=== PATIENT | male | born 1990 | race Caucasian/White ===

== ENCOUNTER 2017-07-04 23:43 | Inpatient (IN) | payer OTHER ==
[~2017-07-04] VITALS: Ht 188 cm; Wt 85.8 kg
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
[2017-07-05 00:13] LABS: BASO % 0 % (0-3); EOS % 0 % (0-3); HEMATOCRIT 48.4 % (39.0-53.0); HEMOGLOBIN 16.7 g/dL (13.0-17.5); LYMPH % 23 % (24-48); MEAN CORPUSCULAR HEMOGLOBIN 30 pg (25-35); MEAN CORPUSCULAR HGB CONC 35 g/dL (31-37); MEAN CORPUSCULAR VOLUME 87 fL (79-100); MONO % 9 % (0-9); NEUT % 68 % (31-73); PLATELET COUNT 221 x10^3/uL (140-400); RED BLOOD COUNT 5.58 x10^6/uL (4.30-5.70); RED CELL DISTRIBUTION WIDTH 12.8 % (11.5-14.5)
[2017-07-05 00:22] LABS: INR 1.2 (0.8-1.1); PROTHROMBIN TIME PATIENT 14.5 SEC (11.7-14.0)
[2017-07-05] MEDS ORDERED: IV NORMAL SALINE 1000ML BAG 1,000 ML IV ONE (00:30)
[2017-07-05 00:48] LABS: CREATININE 1.2 mg/dL (0.7-1.3); GFR 72.6; POTASSIUM 4.5 mmol/L (3.5-5.1)
[2017-07-05 00:54] LABS: ALBUMIN 5.3 g/dL (3.4-5.0); DIRECT BILIRUBIN 0.3 mg/dL (0.0-0.2); TOTAL BILIRUBIN 2.5 mg/dL (0.2-1.0)
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
[2017-07-05 01:54] LABS: BARBITURATES NEG (NEG); BENZODIAZEPINES NEG (NEG); CANNABINOIDS NEG (NEG); COCAINE NEG (NEG); METHADONE NEG (NEG); OPIATES NEG (NEG); PHENCYCLIDINE NEG (NEG)
[2017-07-05] MEDS ORDERED: ONDANSETRON PF 4 MG/2 ML VIAL. IV PRN ×2 (02:15→08:30)
[2017-07-05 02:38] LABS: BILIRUBIN,URINE NEGATIVE (NEG); GLUCOSE,URINE NEGATIVE (NEG); NITRITE,URINE NEGATIVE (NEG); PROTEIN,URINE NEGATIVE (NEG-TRACE); UROBILINOGEN,URINE 0.2 mg/dL (0.2 mg/dL)
[2017-07-05 02:39] LABS: BACTERIA,URINE FEW /HPF (0-FEW); SQUAMOUS EPITHELIAL CELL,UR OCC /LPF
[2017-07-05 04:02] VITALS: BP 125/82
[2017-07-05] MEDS: MORPHINE SULFATE 2 MG/ML DISP.SYRIN. IV PRN ×2 (04:20→15:53)
[2017-07-05] MEDS ORDERED: PREN1TAB58 PO (04:37)
[2017-07-05 07:00] VITALS: BP 119/70
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
[2017-07-05] MEDS ORDERED: ACETAMINOPHEN 325 MG TABLET. PO PRN (08:30)
[2017-07-05] MEDS: PRENATAL MULTIVITAMIN TABLET. PO SCH (09:10)
[2017-07-05] MEDS: IBUPROFEN 600 MG TABLET. PO PRN (09:30)
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
[2017-07-05 11:38] VITALS: BP 116/66
[2017-07-05] MEDS ORDERED: IOHEXOL 240 MG/ML 50ML VIAL. PO ONE (11:45)
[2017-07-05] MEDS ORDERED: CONTRAST GIVEN MC PRN (11:45)
[2017-07-05] MEDS ORDERED: IOHEXOL 300 MG/ML 100ML VIAL. IV ONE (11:45)
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
--- NOTE | 2017-07-05 12:51 | EKG ---
[facility] [address] [place] [address] Test Date: 2017-07-05 Test Time: 00:18:47 Pat Name: NOAM CRABTREE Department: Room: 574 1 Gender: M Shop Service Technician: : 1990 Requested By: JENISE VELA Order Number: [id number] Reading MD: Thai Francis Measurements Intervals [place] Rate: 73 P: 64 OR: 168 QRS: 65 QRSD: 104 T: 46 QT: 390 QTc: 433 Interpretive Statements SINUS RHYTHM Electronically Signed On 07-14-2017 14:15:53 [employer]ALL [employer] by Thai Francis
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
[2017-07-05 15:18] VITALS: BP 117/62
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
[2017-07-05 19:21] VITALS: BP 95/52
[2017-07-05 23:54] VITALS: BP 103/54
[2017-07-06 03:52] VITALS: BP 99/43
[2017-07-06 05:29] LABS: BASO % 1 % (0-3); EOS % 3 % (0-3); HEMATOCRIT 40.8 % (39.0-53.0); LYMPH # 3.3 x10^3/uL (1.0-4.8); LYMPH % 43 % (24-48); MEAN CORPUSCULAR HEMOGLOBIN 30 pg (25-35); MEAN CORPUSCULAR HGB CONC 34 g/dL (31-37); MEAN CORPUSCULAR VOLUME 87 fL (79-100); MONO % 9 % (0-9); NEUT % 45 % (31-73); PLATELET COUNT 175 x10^3/uL (140-400); RED BLOOD COUNT 4.68 x10^6/uL (4.30-5.70); RED CELL DISTRIBUTION WIDTH 12.8 % (11.5-14.5); WHITE BLOOD COUNT 7.7 x10^3/uL (4.0-11.0)
[2017-07-06 06:02] LABS: ALBUMIN 3.8 g/dL (3.4-5.0); ALBUMIN/GLOBULIN RATIO 1.3 (1.0-1.7); CALCIUM 8.7 mg/dL (8.5-10.1); CREATININE 0.9 mg/dL (0.7-1.3); GFR 101.2; TOTAL BILIRUBIN 0.9 mg/dL (0.2-1.0); TOTAL PROTEIN 6.7 g/dL (6.4-8.2)
[2017-07-06 07:00] VITALS: BP 117/65
[2017-07-06] MEDS: PRENATAL MULTIVITAMIN TABLET. PO SCH (10:20)
--- NOTE | 2017-07-06 10:38 | PDOC ---
G I PROGRESS NOTE Subjective No real complaints, though taciturn. Objective Staff report some non-specific abd cramps and emesis yesterday x 1 and did not recur. No records from [place] yet. Physical Exam Lungs clear. RRR Abdomen soft, not distended. Possibly some tenderness, non-specific. Review of Relevant I have reviewed the following items shaw (where applicable) has been applied. Labs Laboratory Tests Test 07/04/17 23:50 07/05/17 01:10 07/05/17 01:30 07/05/17 12:50 White Blood Count 13.0 x10^3/uL (4.0-11.0) Red Blood Count 5.58 x10^6/uL (4.30-5.70) Hemoglobin 16.7 g/dL (13.0-17.5) Hematocrit 48.4 % (39.0-53.0) Mean Corpuscular Volume 87 fL (79-100) Mean Corpuscular Hemoglobin 30 pg (25-35) Mean Corpuscular Hemoglobin Concent 35 g/dL (31-37) Red Cell Distribution Width 12.8 % (11.5-14.5) Platelet Count 221 x10^3/uL (140-400) Neutrophils (%) (Auto) 68 % (31-73) Lymphocytes (%) (Auto) 23 % (24-48) Monocytes (%) (Auto) 9 % (0-9) Eosinophils (%) (Auto) 0 % (0-3) Basophils (%) (Auto) 0 % (0-3) Neutrophils # (Auto) 8.8 x10^3uL (1.8-7.7) Lymphocytes # (Auto) 3.0 x10^3/uL (1.0-4.8) Monocytes # (Auto) 1.2 x10^3/uL (0.0-1.1) Eosinophils # (Auto) 0.0 x10^3/uL (0.0-0.7) Basophils # (Auto) 0.0 x10^3/uL (0.0-0.2) Prothrombin Time 14.5 SEC (11.7-14.0) Prothromb Time International Ratio 1.2 (0.8-1.1) Activated Partial Thromboplast Time 45 SEC (24-38) Sodium Level 140 mmol/L (136-145) Potassium Level 4.5 mmol/L (3.5-5.1) Chloride Level 101 mmol/L (98-107) Carbon Dioxide Level 28 mmol/L (21-32) Anion Gap 11 (6-14) Blood Urea Nitrogen 20 mg/dL (8-26) Creatinine 1.2 mg/dL (0.7-1.3) Estimated GFR (Cockcroft-Gault) 72.6 Glucose Level 84 mg/dL (70-99) Calcium Level 10.0 mg/dL (8.5-10.1) Total Bilirubin 2.5 mg/dL (0.2-1.0) Direct Bilirubin 0.3 mg/dL (0.0-0.2) Aspartate Amino Transf (AST/SGOT) 21 U/L (15-37) Alanine Aminotransferase (ALT/SGPT) 25 U/L (16-63) Alkaline Phosphatase 65 U/L (46-116) Total Protein 9.0 g/dL (6.4-8.2) Albumin 5.3 g/dL (3.4-5.0) Lactic Acid Level 1.1 mmol/L (0.4-2.0) Urine Collection Type Unknown Urine Color Yellow Urine Clarity Clear Urine pH 7.0 Urine Specific [place] <=1.005 Urine Protein Negative mg/dL (NEG-TRACE) Urine Glucose (UA) Negative mg/dL (NEG) Urine Ketones (Stick) Negative mg/dL (NEG) Urine Blood Negative (NEG) Urine Nitrite Negative (NEG) Urine Bilirubin Negative (NEG) Urine Urobilinogen Dipstick 0.2 mg/dL (0.2 mg/dL) Urine Leukocyte Esterase Negative (NEG) Urine RBC 11-20 /HPF (0-2) Urine WBC 1-4 /HPF (0-4) Urine Squamous Epithelial Cells Occ /LPF Urine Bacteria Few /HPF (0-FEW) Urine Hyaline Casts Few /HPF Urine Mucus Mod /LPF Erythrocyte Sedimentation Rate 3 (0-15) Test 07/06/17 04:25 White Blood Count 7.7 x10^3/uL (4.0-11.0) Red Blood Count 4.68 x10^6/uL (4.30-5.70) Hemoglobin 14.0 g/dL (13.0-17.5) Hematocrit 40.8 % (39.0-53.0) Mean Corpuscular Volume 87 fL (79-100) Mean Corpuscular Hemoglobin 30 pg (25-35) Mean Corpuscular Hemoglobin Concent 34 g/dL (31-37) Red Cell Distribution Width 12.8 % (11.5-14.5) Platelet Count 175 x10^3/uL (140-400) Neutrophils (%) (Auto) 45 % (31-73) Lymphocytes (%) (Auto) 43 % (24-48) Monocytes (%) (Auto) 9 % (0-9) Eosinophils (%) (Auto) 3 % (0-3) Basophils (%) (Auto) 1 % (0-3) Neutrophils # (Auto) 3.5 x10^3uL (1.8-7.7) Lymphocytes # (Auto) 3.3 x10^3/uL (1.0-4.8) Monocytes # (Auto) 0.7 x10^3/uL (0.0-1.1) Eosinophils # (Auto) 0.2 x10^3/uL (0.0-0.7) Basophils # (Auto) 0.0 x10^3/uL (0.0-0.2) Sodium Level 140 mmol/L (136-145) Potassium Level 4.0 mmol/L (3.5-5.1) Chloride Level 106 mmol/L (98-107) Carbon Dioxide Level 28 mmol/L (21-32) Anion Gap 6 (6-14) Blood Urea Nitrogen 16 mg/dL (8-26) Creatinine 0.9 mg/dL (0.7-1.3) Estimated GFR (Cockcroft-Gault) 101.2 BUN/Creatinine Ratio 18 (6-20) Glucose Level 82 mg/dL (70-99) Calcium Level 8.7 mg/dL (8.5-10.1) Total Bilirubin 0.9 mg/dL (0.2-1.0) Aspartate Amino Transf (AST/SGOT) 19 U/L (15-37) Alanine Aminotransferase (ALT/SGPT) 22 U/L (16-63) Alkaline Phosphatase 45 U/L (46-116) Total Protein 6.7 g/dL (6.4-8.2) Albumin 3.8 g/dL (3.4-5.0) Albumin/Globulin Ratio 1.3 (1.0-1.7) Laboratory Tests Test 07/05/17 12:50 07/06/17 04:25 Erythrocyte Sedimentation Rate 3 (0-15) White Blood Count 7.7 x10^3/uL (4.0-11.0) Red Blood Count 4.68 x10^6/uL (4.30-5.70) Hemoglobin 14.0 g/dL (13.0-17.5) Hematocrit 40.8 % (39.0-53.0) Mean Corpuscular Volume 87 fL (79-100) Mean Corpuscular Hemoglobin 30 pg (25-35) Mean Corpuscular Hemoglobin Concent 34 g/dL (31-37) Red Cell Distribution Width 12.8 % (11.5-14.5) Platelet Count 175 x10^3/uL (140-400) Neutrophils (%) (Auto) 45 % (31-73) Lymphocytes (%) (Auto) 43 % (24-48) Monocytes (%) (Auto) 9 % (0-9) Eosinophils (%) (Auto) 3 % (0-3) Basophils (%) (Auto) 1 % (0-3) Neutrophils # (Auto) 3.5 x10^3uL (1.8-7.7) Lymphocytes # (Auto) 3.3 x10^3/uL (1.0-4.8) Monocytes # (Auto) 0.7 x10^3/uL (0.0-1.1) Eosinophils # (Auto) 0.2 x10^3/uL (0.0-0.7) Basophils # (Auto) 0.0 x10^3/uL (0.0-0.2) Sodium Level 140 mmol/L (136-145) Potassium Level 4.0 mmol/L (3.5-5.1) Chloride Level 106 mmol/L (98-107) Carbon Dioxide Level 28 mmol/L (21-32) Anion Gap 6 (6-14) Blood Urea Nitrogen 16 mg/dL (8-26) Creatinine 0.9 mg/dL (0.7-1.3) Estimated GFR (Cockcroft-Gault) 101.2 BUN/Creatinine Ratio 18 (6-20) Glucose Level 82 mg/dL (70-99) Calcium Level 8.7 mg/dL (8.5-10.1) Total Bilirubin 0.9 mg/dL (0.2-1.0) Aspartate Amino Transf (AST/SGOT) 19 U/L (15-37) Alanine Aminotransferase (ALT/SGPT) 22 U/L (16-63) Alkaline Phosphatase 45 U/L (46-116) Total Protein 6.7 g/dL (6.4-8.2) Albumin 3.8 g/dL (3.4-5.0) Albumin/Globulin Ratio 1.3 (1.0-1.7) Bili not normal as ate. ESR of 3. Medications Current Medications Sodium Chloride 1,000 ml @ 1,000 mls/hr 1X ONCE IV Last administered on 07/05 00:25; Start 07/05/17 at 00:30; Stop 07/05/17 at 01:29; Status DC Ondansetron HCl (Zofran) 4 mg PRN Q8HRS PRN IV NAUSEA/VOMITING; Start at 02:15; Stop 07/05/17 at 08:22; Status DC Morphine Sulfate 2 mg PRN Q2HR PRN IV SEVERE PAIN Last administered on 15:53; Start 07/05/17 at 02:15; Stop 07/06/17 at 02:14; Status DC Ondansetron HCl (Zofran) 4 mg PRN Q6HRS PRN IV NAUSEA/VOMITING Last administered on 07/05/17 15:53; Start 07/05/17 at 08:30; Stop 07/06/17 at 08 :29; Status DC Acetaminophen (Tylenol) 650 mg PRN Q6HRS PRN PO pain; Start 07/05/17 at 08:30 Ibuprofen (Motrin) 600 mg PRN Q6HRS PRN PO INFLAMMATION Last administered on 09:30; Start 07/05/17 at 08:30 Multivit/ Folic Acid/Iron (Multivitamin ) 1 tab DAILY PO Last administered on 07/06/17 10:20; Start 07/05/17 at 09:00 Iohexol (Omnipaque 300 Mg/ml) 75 ml 1X ONCE IV Last administered on 13:19; Start 07/05/17 at 11:45; Stop 07/05/17 at 11:46; Status DC Iohexol (Omnipaque 240 Mg/ml) 50 ml 1X ONCE PO Last administered on 11:45; Start 07/05/17 at 11:45; Stop 07/05/17 at 11:46; Status DC Info (Do NOT chart on this entry -- for MONITORING) 1 each PRN DAILY PRN MC SEE COMMENTS; Start 07/05/17 at 11:45; Stop 07/07/17 at 11:44 Lorazepam (Ativan) 1 mg PRN Q4HRS PRN IV ANXIETY / AGITATION Last administered on 07/05/17 19:48; Start 07/05/17 at 12:15 Active Scripts Active Reported Vitamins ( Vits W-Ca,Fe,Fa(<1MG)) 1 Each Tablet 1 Tab PO DAILY Vitals/I & O Vital Sign - Last 24 Hours 07/05/17 07/05/17 07/05/17 07/05/17 11:38 15:18 15:53 19:21 Temp 97.8 97.9 96.6 97.8 97.9 96.6 Pulse 58 86 51 Resp 18 18 18 18 B/P (MAP) 116/66 (83) 117/62 (80) 95/52 (66) Pulse Ox 96 96 99 O2 Delivery Room Air Room Air Room Air Room Air 07/05/17 07/05/17 07/06/17 07/06/17 20:00 23:54 03:52 07:00 Temp 97.5 97.3 97.4 97.5 97.3 97.4 Pulse 56 58 53 Resp 18 18 18 B/P (MAP) 103/54 (70) 99/43 (61) 117/65 (82) Pulse Ox 99 98 98 O2 Delivery Room Air Room Air Room Air Room Air Intake and Output 07/05/17 07/05/17 07/06/17 15:00 23:00 07:00 Intake Total 400 ml 400 ml 30 ml Balance 400 ml 400 ml [address]: Findings: There is no free fluid or free air. Bowel is not significantly dilated. There is no significant inflammatory type change localized about the bowel. There is surgical suture in the right abdomen at site of bowel anastomotic site. There may be some mild small bowel wall thickening in the abdomen although could be due to incomplete distention. Appendix is not seen if still present. Both kidneys enhance, no hydronephrosis. Gallbladder is present without obvious intraluminal abnormality by CT. There is no adrenal nodularity. No focal abnormality is identified of the liver, spleen, pancreas. Urinary bladder morphology is within normal limits. No acute osseous abnormality is identified. Impression 1. There may be some mild small bowel wall thickening in the abdomen which could be related to enteritis although could also be due to incomplete distention. Otherwise no significant acute abnormality is identified. --reviewed. Problem List Problems Medical Problems: (1) Hyperbilirubinemia Status: Acute Assessment Gilbert's syndrome. H/o Crohn's; if present, nil activity. Unconfirmed/awaiting records. Plan of Care: Continue current Tx, Mgmt Plan of Care Note Await info from [facility]. HARI MORIN MD Jul 06, 2017 10:37
[2017-07-06 11:22] VITALS: BP 115/64
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
[2017-07-06 15:13] VITALS: BP 113/61
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
[2017-07-06 19:00] VITALS: BP 114/64
[2017-07-06] MEDS: IBUPROFEN 600 MG TABLET. PO PRN (20:40)
[2017-07-06 23:00] VITALS: BP 113/63
[2017-07-07 03:00] VITALS: BP 106/52
[2017-07-07 07:00] VITALS: BP 99/60
[2017-07-07] MEDS: PRENATAL MULTIVITAMIN TABLET. PO SCH (09:23)
[2017-07-07] MEDS: IBUPROFEN 600 MG TABLET. PO PRN (09:23)
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
[2017-07-07 11:00] VITALS: BP 110/51
--- NOTE | 2017-07-07 13:33 | PDOC ---
Objective: Objective: Out for MRI. Reviewed records from [facility] - no path, but op notes indicate fistulizing Crohn' s, lap for intra-abd abscess. Vital Signs: Vital Signs Date Time Temp Pulse Resp B/P (MAP) Pulse Ox O2 Delivery O2 Flow Rate FiO2 07/07/17 11:00 97.7 67 18 110/51 (70) 98 Room Air 97.7 Imaging: Brain MRI PENDING PE: no exam A/P: Hyperbilirubinemia/Gilbert's H/o Crohn's - recs reviewed as above, no path -- Other per Dr. Webber. KAY ASHER Jul 07, 2017 13:33
[2017-07-07] MEDS ORDERED: GADOBUTROL 7.5 MMOL/7.5 ML VIAL IV ONE (13:45)
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
[2017-07-07 15:02] VITALS: BP 123/73
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
== END 2017-07-07 16:00 | DRG 155 ==
LOC: ER 23:43 → EEVIPCON 23:43 → 5 SOUTH 07-05 02:00
PROVIDERS: ADMIT Internal Medicine; ATTEND Internal Medicine
DX: S02.2XXA Fracture of nasal bones, initial encounter for closed fracture (principal); R65.10 Systemic inflammatory response syndrome (SIRS) of non-infectious origin without acute organ dysfunction; E44.0 Moderate protein-calorie malnutrition; K50.90 Crohn's disease, unspecified, without complications; S09.90XA Unspecified injury of head, initial encounter; Y99.8 Other external cause status; Y92.148 Other place in prison as the place of occurrence of the external cause; Y93.89 Activity, other specified; Y08.89XA Assault by other specified means, initial encounter; E80.4 Gilbert syndrome; G44.309 Post-traumatic headache, unspecified, not intractable; Y00.XXXA Assault by blunt object, initial encounter; Z88.8 Allergy status to other drugs, medicaments and biological substances; H57.8 Other specified disorders of eye and adnexa
CPT/HCPCS: 36415; 70450; 70486; 70553; 72125; 73110; 73610; 74022; 74177; 80048; 80053; 80076; 80307; 81001; 83605; 85025; 85610; 85651; 85730; 93005; 95816; 96360; A9585; J2060; J2270; J2405; J7030; Q9966; Q9967; 99285-25; G0479